=== PATIENT | female | born 1995 | race Caucasian/White ===

== ENCOUNTER 2024-05-08 13:13 | Emergency (ER) | payer SELFPAY ==
[2024-05-08 13:14] VITALS: BP 132/78
--- NOTE | 2024-05-08 13:36 | ED.GENMED ---
History of Present Illness
<Wandy Buenrostro PA-C - Last Filed: 05/10/24 22:04>
General
Chief Complaint: Skin Problem
Source: patient
Exam Limitations: none
Time Seen by Provider: 05/08/24 13:23
Nursing documentation reviewed up to this point in time: agreed with
History of Present Illness
History of Present Illness:
Patient is a 28-year-old female presenting to the emergency department for evaluation of suspected bug bite. Patient states that she was walking out of [employer] about 30 minutes ago when she felt a sudden onset 'burning 'sensation in her left
calf. She immediately swatted at her left calf and thinks she may have seen something white but did not get a good look at it. Patient states that she has been having localized burning in her left calf since the bite. Patient denies any
numbness/tingling of left lower leg. Patient denies any generalized rash, fever, shortness of breath, difficulty breathing, or oral swelling. Patient denies any chest pain or abdominal pain. Patient is otherwise feeling well.
Patient became concerned when her friend told her that she may have been bit by something poisonous for further evaluation.
Patient denies any known or previous allergies to bug bites.
Past History
<Wandy Buenrostro PA-C - Last Filed: 05/10/24 22:04>
Past History
ED Past Medical History: None
ED Past Surgical History: None
Social History
Tobacco: Smoker
Alcohol: None
Drug: None
Personal: Single
Living: with family
Employment: Employed
Review of Systems
<Wandy Buenrostro PA-C - Last Filed: 05/10/24 22:04>
Review of Systems
Allergies reviewed?: Yes
All Other Systems: ROS reviewed and negative except as documented in HPI and ROS
Phy Exam
<Wandy Buenrostro PA-C - Last Filed: 05/10/24 22:04>
Physical Exam
Physical Exam:
Vitals: Patient's vital signs are stable. Afebrile
General: Patient is very well appearing, no acute distress. Nontoxic-appearing
Skin: Small area of the erythema of posterior left calf. No edema or ecchymoses. No foreign body noted. No ulcerations noted.
Head: Normocephalic, atraumatic
Eyes: Sclera nonicteric. EOMs intact. No nystagmus.
Throat: Protecting airway
Neck: Normal ROM, no cervical spine tenderness, no meningismus
Cardiac: Regular rate and rhythm, no murmurs.
Pulm: Normal respiratory effort, no wheezes, rales, rhonchi heard on exam.
Abdomen: No abdominal tenderness.
Extremities: Erythema to left calf as described above. No evidence of cyanosis or edema. Strength 5 out of 5 in upper and lower extremities. Great distal pulses in upper and lower extremities
Neuro: AAOx3. CN II-XII intact. No focal neurologic deficits.
Psychiatric: Normal affect.
Course
<Wandy Buenrostro PA-C - Last Filed: 05/10/24 22:04>
Orders/Labs/Results
Orders:
Orders
05/08/24 13:39
Ibuprofen [Motrin] 400 mg PO NOW STA
Vital Signs
Initial and Last Documented VS:
Initial Vital Signs
Temp Pulse Resp BP Pulse Ox
98.1 F 82 18 132/78 96
05/08/24 13:14 05/08/24 13:14 05/08/24 13:14 05/08/24 13:14 05/08/24 13:14
Last Documented Vital Signs
Temp Pulse Resp BP Pulse Ox
98.1 F 82 16 132/78 96
05/08/24 13:14 05/08/24 13:14 05/08/24 14:46 05/08/24 13:14 05/08/24 13:14
<Rukhsana Hammond DO - Last Filed: 05/08/24 14:47>
Orders/Labs/Results
Orders:
Orders
05/08/24 13:39
Ibuprofen [Motrin] 400 mg PO NOW STA
Vital Signs
Initial and Last Documented VS:
Initial Vital Signs
Temp Pulse Resp BP Pulse Ox
98.1 F 82 18 132/78 96
05/08/24 13:14 05/08/24 13:14 05/08/24 13:14 05/08/24 13:14 05/08/24 13:14
Last Documented Vital Signs
Temp Pulse Resp BP Pulse Ox
98.1 F 82 16 132/78 96
05/08/24 13:14 05/08/24 13:14 05/08/24 14:46 05/08/24 13:14 05/08/24 13:14
<Wandy Buenrostro PA-C - Last Filed: 05/10/24 22:04>
MDM/Problems Addressed
Differential Diagnosis Includes:
Not limited to: Insect bite, allergic reaction
MDM/Problems Addressed:
28 year old female presents with suspected bug bite on left posterior calf. No difficulty ambulating. No shortness of breath. No rash. Vitals stable. Physical exam as above. Very faint erythema of discrete area of left proximal calf tender to
palpation. No foreign body. No signs of infection. Great distal pulses of RLE. No signs of allergic reaction. No oral swelling or respiratory distress. No rash. Patient was given motrin and ice pack and monitored in department for approximately an
hour.
On reassessment - redness has started to fade and patient remains without any indication of anaphylaxis. Low suspicion for cellulitis given suspected bite just occurred. Stable for discharge with return precautions/primary care follow-up.
Chronic conditions affecting care:
N/A
Acute Exacerbation and/or Progression of Chronic Illness:
N/A
<Wandy Buenrostro PA-C - Last Filed: 05/10/24 22:04>
*Pulse Oximetry
Patient hypoxic: no
*EKG
Interpreted by ED Provider?: NA
*Auto Slip Cover Installer Interpretation
Rate: Auto Slip Cover Installer- N/A
*Critical Care Note
Total Time (30-74mins, 75-104mins- exclusive of procedures): Not Applicable
ED Attending Note
<Wandy Buenrostro PA-C - Last Filed: 05/10/24 22:04>
-
Portions of this chart may have been created with voice recognition software.� Occasional wrong word or��sound alike� substitutions may have occurred due to the inherent limitations of voice recognition software.
<Rukhsana Hammond DO - Last Filed: 05/08/24 14:47>
ED Attending Note
Patient seen and examined by attending physician: Yes
I performed a history and physical exam of patient and discussed management with resident, I reviewed resident's note and agree with documented findings and plan of care.: Yes
ED Attending Note:
28-year-old female presenting with insect bite to left calf 30 minutes prior to arrival. Patient reports burning sensation to the area which prompted ED arrival. Patient denies shortness of breath, nausea, vomiting, or lip swelling. Heart regular
rate rhythm, lungs clear, abdomen soft nondistended nontender. Minimal erythema to left posterior calf with no fluctuance or induration. No bite flo. No stinger/foreign body. No tenderness to palpation. Low suspicion for cellulitis given
minimal erythema and just happened 30 minutes prior to arrival. No anaphylaxis. Will discharge with PCP follow-up. Discussed return precautions, patient voiced verbal understanding
Discharge Plan
Departure
Patient Disposition: Home (Routine Discharge)
Date of Disposition: 05/08/24
Time of Disposition: 14:42
Patient with high blood pressure during this ER visit?: No
Covid-19: Not Applicable
Discharge Problem:
Insect bite
Instructions: Insect Bites and Stings ED
Prescriptions:
No Action
naproxen 500 mg tablet
500 mg PO BID PRN (Reason: pain) Qty: 20 0RF
Referrals:
NONE,* [Family Provider] -
Stand Alone Forms: Return to Work
Activity Restrictions/Additional Instructions:
RETURN TO THE EMERGENCY DEPARTMENT WITH ANY FEVERS, CHILLS, SHORTNESS OF BREATH/DIFFICULTY BREATHING, SIGNIFICANT REDNESS/SWELLING/BRUISING OF LEFT LOWER LEG, OR ANY SIGNS OF INFECTION
-You should keep leg ice for discomfort. You can take Motrin and/or Tylenol as needed.
-Keep area clean and dry. Monitor closely for signs of infection return if you notice any concerning symptoms.
-Follow-up with primary care for further evaluation/management
Interventions
Interventions:
*Risk Screen - Suicide Last Done: 05/08/24 13:35
*General Assessment Last Done: 05/08/24 13:35
*Neglect/Abuse Screening Last Done: 05/08/24 13:35
ED- Fall Risk Assessment Last Done: 05/08/24 13:35
*ED COVID-19 Vaccine History Last Done: 05/08/24 14:54
*Nursing Disposition Last Done: 05/08/24 14:54
ED-Skin Assessment Last Done: 05/08/24 13:35
Discharge Date and Time
Discharge Date/Time: 05/08/24 14:54
Print Language: CITIZEN OF [place]
[2024-05-08] MEDS: MOTRIN 400 MG PO (13:49)
== END 2024-05-08 14:54 | disposition home or self-care (01) ==
LOC: EMR 13:13
PROVIDERS: EMERGENCY PHYSICIAN Emergency Medicine
DX: R20.8 Other disturbances of skin sensation (principal); S80.862A Insect bite (nonvenomous), left lower leg, initial encounter; W57.XXXA Bitten or stung by nonvenomous insect and other nonvenomous arthropods, initial encounter; Y92.89 Other specified places as the place of occurrence of the external cause; F17.200 Nicotine dependence, unspecified, uncomplicated; Z88.0 Allergy status to penicillin
CPT/HCPCS: 99283

== ENCOUNTER 2024-09-22 16:45 | Emergency (ER) | payer OTHER, SELFPAY ==
[2024-09-22 16:47] VITALS: BP 157/86
--- NOTE | 2024-09-22 18:09 | ED.GENMED ---
History of Present Illness
General
Chief Complaint: Musculo-Skeletal Complaint
Source: patient
Exam Limitations: none
Time Seen by Provider: 09/22/24 17:49
Nursing documentation reviewed up to this point in time: agreed with
History of Present Illness
History of Present Illness:
pt is a 28 y/o F with h/o occ L knee pain/swleling in
here after twisting her knee las tnight while wearing flip flops, she slipped an dsays that she has L lateral anterior knee pain and feels her knee is going to buckle
she tired tom wrapping but ti didn't help
she has had issues off and on with this knee but has not seenn ortho
just got insurance
no pain meds taken
denies fall to the groun faraz other injuries
Past History
Past History
ED Past Medical History: None
ED Past Surgical History: None
Social History
Tobacco: Smoker
Alcohol: None
Drug: None
Personal: Single
Living: with family
Employment: Employed
Review of Systems
Review of Systems
Allergies reviewed?: Yes
All Other Systems: Not applicable
Phy Exam
Physical Exam
Physical Exam:
GENERAL: Alert , in no apparent distress
cv: 2+ dorsalis pedis pulse L leg
NEUROLOGICAL: Alert and oriented, no focal neuro deficits
SKIN: Warm and dry, skin intact.
MUSCULOSKELETAL: mild L knee swelling diffusely
painful flexion able to flex 30 grees
mild laxity with valgus stress
neg ant/post drawer
PSYCH: Normal and appropriate interaction.
Course
Orders/Labs/Results
Orders:
Orders
09/22/24 16:49
Knee, Left 4 or More Views [CR Knee - Left 4 Or More View*] Urgent
Comment:
Reason For Exam: knee pain
Vital Signs
Initial and Last Documented VS:
Initial Vital Signs
Temp Pulse Resp BP Pulse Ox
36.8 C 78 19 157/86 99
09/22/24 16:47 09/22/24 16:47 09/22/24 16:47 09/22/24 16:47 09/22/24 16:47
Last Documented Vital Signs
Temp Pulse Resp BP Pulse Ox
36.8 C 78 19 157/86 99
09/22/24 16:47 09/22/24 16:47 09/22/24 16:47 09/22/24 16:47 09/22/24 16:47
MDM/Problems Addressed
Differential Diagnosis Includes:
knee sprain, nkee effusion, meniscus injury
MDM/Problems Addressed:
28 y/o F
twisted L kneeand has some swelling and painful weight bearing
has had issues previously but never had ortho eval
appreiate mild effusion on exam
pain with flexion and some valgus stress laxity minimally
will attempt knee immobiilzer and crutches/partial weight bearing
fu ortho
ED Attending Note
-
Portions of this chart may have been created with voice recognition software.� Occasional wrong word or��sound alike� substitutions may have occurred due to the inherent limitations of voice recognition software.
Discharge Plan
Departure
Patient Disposition: Home (Routine Discharge)
Date of Disposition: 09/22/24
Time of Disposition: 18:18
Patient with high blood pressure during this ER visit?: Yes
Condition: Fair
Covid-19: Not Applicable
Discharge Problem:
Left knee sprain
Instructions: Knee Immobilizer (DC), Knee Sprain (DC)
Prescriptions:
No Action
naproxen 500 mg tablet
500 mg PO BID PRN (Reason: pain) Qty: 20 0RF
Referrals:
Syed Todd MD [Active] - Follow up in 5-7 days (ortho)
Activity Restrictions/Additional Instructions:
YOU PROBABLY SPRAINED YOUR L KNEE, YOU COULD HAVE A PARTIAL MENISCUS INJURY
TRY WEARING THE KNEE IMMOBILIZER DURING THE DAY, CAN TAKE IT OFF AT NIGHT
USE THE CRUTCHES TO HELP YOU WALK
ELEVATE, ICE, MOTRIN
FOLLOW UP WITH ORTHOPEDICS
RETURN FOR ANY CONCERNS.
Interventions
Interventions:
*Risk Screen - Suicide Last Done: 09/22/24 16:47
*General Assessment Last Done: 09/22/24 16:47
*Neglect/Abuse Screening Last Done: 09/22/24 16:47
Discharge Date and Time
Print Language: [place]
[2024-09-22 18:37] VITALS: BMI 37.8
== END 2024-09-22 18:52 | disposition home or self-care (01) ==
LOC: EMR 16:45
PROVIDERS: EMERGENCY PHYSICIAN Emergency Medicine
DX: S83.92XA Sprain of unspecified site of left knee, initial encounter (principal); X50.1XXA Overexertion from prolonged static or awkward postures, initial encounter; F17.200 Nicotine dependence, unspecified, uncomplicated
CPT/HCPCS: 99283; 29505; 73564